=== PATIENT | female | born 1930 | race Caucasian/White ===

== ENCOUNTER 2016-12-04 15:46 | Emergency (ER) | payer MEDICARE, OTHER ==
--- NOTE | ~2016-12-04 | CR142 ---
[facility] A Service of [facility] & [facility] RADIOLOGY TEXT RESULTS PATIENT: JUAN CARLOS STERN LOCATION: [facility] : 30 UNIT #: [id number] AGE: [address]: Flip Moran MD SEX: F ORDER DR: [id number] [facility] [address] [place], [place] [address] [id number] E MR#: [id number] Acc #: [id number] NAME: JUAN CARLOS STERN : 1930 SEX: F STUDY DATE/TIME: 12/04/2016 17:03 UNIT: [facility] ROOM: STUDY DESCRIPTION: CR Hand Min 3 Views Rt Attending Physician: Flip Moran Ordering Physician: Ed Emile Molina M.D. Primary Care Physician: Sammy Rincon M.D. MEDICAL IMAGING REPORT This report is preliminary unless electronic signature is present EXAM Right hand 3 views DATE OF STUDY 12/04/2016 CLINICAL HISTORY Pain and swelling and bruising after fall today FINDINGS There is osteopenia, and there is an acute oblique fracture of the fifth metacarpal mildly displaced. There is no dislocation and no additional fractures are seen. Dictated by... Curly Smith M.D. THIS IS AN ELECTRONICALLY VERIFIED REPORT Curly Smith M.D. at 12/06/2016 9:43 AM TEV/to TD: 12/04/2016 21:39 JOB #: [id number] MEDICAL IMAGING REPORT Page 1 of 1 COPY
--- NOTE | ~2016-12-04 | CT71 ---
[facility] A Service of [facility] RADIOLOGY TEXT RESULTS PATIENT: JUAN CARLOS STERN LOCATION: [facility] : 30 UNIT #: [id number] AGE: [address]: Flip Moran MD SEX: F ORDER DR: [id number] [facility] [address] [place], [place] [address] [id number] E MR#: [id number] Acc #: [id number] NAME: JUAN CARLOS STERN : 1930 SEX: F STUDY DATE/TIME: 12/04/2016 16:32 UNIT: [facility] ROOM: STUDY DESCRIPTION: CT Head Wo Contrast Attending Physician: Flip Moran Ordering Physician: Rohith Molina M.D. Primary Care Physician: Sammy Rincon M.D. MEDICAL IMAGING REPORT This report is preliminary unless electronic signature is present EXAM Noncontrast CT head DATE 12/04/2016 HISTORY 86-year-old female who fell and hit her head with laceration to the right eyebrow and right side of the head today. COMPARISON Noncontrast CT head 11/08/2012. TECHNIQUE This CT exam was performed with one or more of the following radiation dose reduction techniques: automatic exposure control, adjustment of mA and/or kV according to patient size, and iterative reconstruction. FINDINGS No acute intracranial hemorrhage, mass lesion, mass effect, or midline shift is seen. There is moderate generalized parenchymal atrophy with compensatory prominence of the ventricles and extraaxial spaces. Mild hypodensities in the deep white matter, favored to represent changes of chronic microvascular disease but there is no CT evidence of acute or evolving infarct. Mild right frontal scalp soft tissue swelling is present. No displaced calvarial fracture is identified. There are features of chronic left maxillary sinusitis. Air-fluid level is seen within the right sphenoid sinus suggesting mild sinusitis changes. IMPRESSION 1. Right frontal scalp soft tissue swelling. No acute intracranial findings. 2. Moderate generalized parenchymal atrophy. [facility] A Service [facility] RADIOLOGY TEXT RESULTS PATIENT: JUAN CARLOS STERN LOCATION: [facility] : 30 UNIT #: [id number] AGE: [address]: Flip Moran MD SEX: F ORDER DR: 3. Features of chronic sinusitis in the left maxillary sinus. Dictated by... Florence Lyons M.D. THIS IS AN ELECTRONICALLY VERIFIED REPORT Florence Lyons M.D. at 12/06/2016 8:31 AM [facility]/[place] TD: 12/04/2016 21:01 JOB #: [id number] MEDICAL IMAGING REPORT Page 1 of 1 COPY
[~2016-12-04 15:46] MED LIST: KEFLEX250 M2 PO
== END 2016-12-04 20:04 | disposition home or self-care (01) ==
LOC: CED 15:46
DX: S62.306A Unspecified fracture of fifth metacarpal bone, right hand, initial encounter for closed fracture (principal); S01.111A Laceration without foreign body of right eyelid and periocular area, initial encounter; I10 Essential (primary) hypertension; E87.6 Hypokalemia; E03.9 Hypothyroidism, unspecified; W01.10XA Fall on same level from slipping, tripping and stumbling with subsequent striking against unspecified object, initial encounter; Y92.009 Unspecified place in unspecified non-institutional (private) residence as the place of occurrence of the external cause
CPT/HCPCS: 12013; 29125; 70450; 73130; 99284

== ENCOUNTER → 2017-02-02 | Outpatient (CLI) | payer MEDICARE, OTHER ==
--- NOTE | ~2017-02-02 | MY29 ---
[facility] A Service of [facility] & [facility] RADIOLOGY TEXT RESULTS PATIENT: JUAN CARLOS STERN LOCATION: [facility] : 30 UNIT #: [id number] AGE: [address]: Delbert Salazar MD SEX: F ORDER DR: [id number] [facility] [address] [place], [place] [address] [id number] O MR#: [id number] Acc #: [id number] NAME: JUAN CARLOS STERN : 1930 SEX: F STUDY DATE/TIME: 02/02/2017 10:15 UNIT: [facility] ROOM: STUDY DESCRIPTION: MY CELESTINO SCREENING W/ CAD BILAT Attending Physician: Delbert Salazar M.D. Referring Physician: Delbert Salazar M.D. Ordering Physician: Delbert Salazar M.D. Primary Care Physician: Sammy Rincon M.D. MEDICAL IMAGING REPORT This report is preliminary unless electronic signature is present REVISED REPORT EXAM Digital screening mammogram, 02/02/2017, [facility]. HISTORY 86-year-old woman. No risk elevation. Annual screen. COMPARISON Mammograms date to 07/22/2009 with most recent 11/18/2015. FINDINGS Digital imaging of each breast was completed utilizing screening protocol. Review includes FDA-approved CAD device. Breast parenchyma is heterogeneously dense with scattered fibronodular pattern bilaterally. Slight dominance is stable in the left breast. There is a small stellate lesion again noted in the inner hemisphere of the right breast. This contains several pleomorphic microcalcifications. This is reproduced on the prior images and is consistent with a radial scar at this time. Bilateral nipple inversion, somewhat greater on the right, is again noted. Given the stated that patient age, it seems prudent to follow the stable radial scar in the right breast at this time. IMPRESSION Stable benign mammogram. See full report. Annual screening recommended. Patients over the age of 40 are entered into a reminder system with target due date for the next mammogram. A result letter will also be sent to the patient. BIRADS: 2 Benign finding. STS. [facility] A Service of [facility] & [facility] RADIOLOGY TEXT RESULTS PAT[facility]: [facility] CARLOS STERN [id number] UNIT #: [id number] AGE: [address]: Delbert Salazar MD SEX: F ORDER DR: Dictated by... Joaquin Vela M.D. THIS IS AN ELECTRONICALLY VERIFIED REPORT Joaquin Vela M.D. at 02/02/2017 2:11 PM LIZANDRO/[email or web address] TD: 02/02/2017 13:07 JOB #: [id number] CC: Vernon/tobi Please Delete MEDICAL IMAGING REPORT Page 1 of 1 COPY
== END | disposition home or self-care (01) ==
LOC: CWCC 09:59
DX: Z12.31 Encounter for screening mammogram for malignant neoplasm of breast (principal)
CPT/HCPCS: G0202